=== PATIENT | female | born 1965 | race Caucasian/White ===

== ENCOUNTER → 2016-09-11 | Outpatient (CLI) | payer BC ==
[~2016-09-11] MED LIST: ASA325 MG PO; LEXAPRO DPS20 MG PO; MIRALAX PACKET17 GM PO; OXY IR DPS5 MG PO; PROTONIX40 MG PO; SENOKOT S1 TAB PO; TYLENOL DPS325 MG PO; ULTRAM DPS50 MG PO
== END | disposition home or self-care (01) ==
LOC: PTH.S 08:17
DX: Z01.812 Encounter for preprocedural laboratory examination (principal)

== ENCOUNTER 2016-09-26 08:28 | Inpatient (IN) | payer BC ==
[~2016-09-26] VITALS: Ht 170.2 cm; Wt 107.4 kg
--- NOTE | 2016-09-26 11:49 | HP ---
ADMIT: 09/26/2016 RM/LOC: [facility] MR#: [id number] [address] [address] ANG[facility] DOVE [facility] [place] [address] Pre-OP History and Physical SEX: F AGE: 51 : 1965 DATE OF SERVICE: CHIEF COMPLAINT: Left knee pain. HISTORY OF PRESENT ILLNESS: The patient is a 51-year-old white female, who has had left knee pain for several years. She by arthroscopy had has grade 4 changes of her medial femoral condyle and along her patellofemoral joint and also lateral joint line. She has had cortisone injections, viscosupplementation per chart for to get around. PAST MEDICAL HISTORY: Significant for fibromyalgia, rheumatoid arthritis, kidney disease, depression, knee arthroscopy, hysterectomy, and . MEDICATIONS: Lexapro. ALLERGIES: NONE. SOCIAL HISTORY: The patient does not smoke or regularly drink alcohol. PHYSICAL EXAMINATION: HEENT: Normocephalic and atraumatic. CV: Regular rate and rhythm. LUNGS: Benign. ABDOMEN: Benign. NEUROLOGIC: Awake, alert, and oriented x3. MUSCULOSKELETAL: Shows the patient is tender over the medial joint line of the patellofemoral joint. Negative Orville. Negative anterior drawer. Negative posterior drawer. Medial and lateral collateral ligaments intact to stressing. Slight swelling of the knee. She has full extension, 130 degrees of flexion. ADMIT: 09/26/2016 RM/LOC: [facility] MR#: [id number] [address] [address] ANGEL DOVE [address] [place] [id number] Pre-OP History and Physical SEX: F AGE: 51 : 1965 IMAGING DATA: X-rays show left knee DJD, significant narrowing along the patellofemoral joint. ASSESSMENT AND PLAN: Left knee degenerative joint disease, has failed nonoperative treatment. At this point in time, we will plan left total knee arthroplasty. The patient understands the risks and benefits of the surgical intervention, which include, but not limited to infection, DVT, arthrofibrosis, neurovascular injury, loosening, , etc and desires to proceed. She will see her medical doctor, Dr. Mart for preoperative medical clearance who will follow her postoperatively in the hospital for anticoagulation and any other medical issues that may arise. Please refer to that H and P for any in-depth medical issues or medication changes. Sidney Michael MD/ jose miguel JOB #: [id number] CC: Sidney Michael, Attending Physician Moraima Smith, Family Physician
[2016-09-29] MEDS ORDERED: OXY IR DPS5 MG PO (15:58)
[2016-09-29] MEDS ORDERED: LEXAPRO DPS20 MG PO (15:58)
[2016-09-29] MEDS ORDERED: ASA325 MG PO (15:59)
[2016-09-29] MEDS ORDERED: ULTRAM DPS50 MG PO (15:59)
[2016-09-29] MEDS ORDERED: MIRALAX PACKET17 GM PO (15:59)
[2016-09-29] MEDS ORDERED: SENOKOT S1 TAB PO (16:00)
[2016-09-29] MEDS ORDERED: TYLENOL DPS325 MG PO (16:00)
[2016-09-29] MEDS ORDERED: PROTONIX40 MG PO (16:00)
--- NOTE | 2016-10-10 13:40 | OR ---
ADMIT: 09/26/2016 RM/LOC: [facility] MR#: [id number] [address] DERRELL ANGEL A [address] [place] [address] Operative/Delivery Room Report SEX: F AGE: 51 : 1965 SURGERY DATE: 09/26/2016 SURGEON: Sidney Michael MD PREOPERATIVE DIAGNOSIS: Left knee degenerative joint disease. POSTOPERATIVE DIAGNOSIS: Left knee degenerative joint disease. PROCEDURE PERFORMED: Left total knee arthroplasty with Ian and Ian system, size 3 posterior stabilized femoral component, size 3 tibial tray, size 38 patellar button, and 10-mm posterior stabilized tibial insert. ASSISTANTS: Michael Aguilar MD and Jigar Rebolledo PA-C ANESTHESIA: Spinal. ESTIMATED BLOOD LOSS: Minimal. FLUIDS: Per anesthetic record. COMPLICATIONS: None. DRAIN: One drain. TOURNIQUET TIME: Approximately 48 minutes. CONDITION ON DISCHARGE: The patient returned to the recovery room in fair condition. INDICATION: The patient has been having left knee pain refractory to nonoperative treatment due to DJD. She desired total knee arthroplasty. She understands the risks and benefits of procedures and decided to proceed with operation. PROCEDURE IN DETAIL: The patient was taken to the OR, transferred to the OR table. Spinal placed. She was laid in supine position. All bony points well padded. Well-padded tourniquet applied to left lower extremity. The left lower extremity was prepped and draped in the usual sterile fashion. It was exsanguinated and tourniquet inflated to 350 mmHg. An anterior incision was made starting over the medial aspect of the tibial tubercle, carried proximal to the patella through the skin and subcutaneous tissue with a skin knife. Medial arthrotomy then performed with a #10 blade. Patella everted, knee flexed. The ACL, PCL, medial and lateral menisci excised. Step drill was then used to open the intramedullary canal of the femur. I placed the IM alignment guide with the distal femoral cutting block down the intramedullary canal of the femur set at 11 mm of resection, 5 degrees of valgus cut and pinned it to the anterior aspect of the distal femur. I removed the IM alignment guide and cut the distal femur using an oscillating saw. I removed this cutting jig and sized the femur to 3. I placed a size 3 four-in-one cutting block on the ADMIT: 09/26/2016 RM/LOC: [facility] MR#: [id number] [address] [address] ANGEL DOVE [address] [place] [address] Operative/Delivery Room Report SEX: F AGE: 51 : 1965 distal aspect of the femur in 3 degrees of external rotation, made the 4 appropriate cuts using an oscillating saw. I removed this cutting jig and placed a box cutting jig on the distal aspect of the femur. I cut the box out of the distal femur using a reciprocating saw. Proximal tibia was then cut perpendicular to the long axis of the tibial shaft using the proximal tibial cutting guide and oscillating saw. The posterior aspect of the patella was cut flush with the posterior aspects of the quadriceps and patellar tendons using the patella cutting saw. This was sized to a 30 and step drilled with the guide. Trial components were then placed. A size 3 tibial tray with 10 mm insert gave excellent range of motion, stability, and patellar tracking. Thus, the femoral component was step drilled, tibial component was step drilled and cruciate punched. Trial components were then removed. Knee thoroughly irrigated with bacitracin solution and dried. Knee thoroughly injected with the Exparel like component. I then cemented the tibia, patella, and femoral components into place removing all extraneous cement as it dried. I then impacted the 10 mm insert into the tibial tray and ran the knee through a range of motion. It had excellent range of motion, stability, and patellar tracking. Thus, one deep drain was then placed. Medial arthrotomy closed using #1 Vicryl, subcutaneous tissue closed using 2-0 Vicryl, skin closed using zayda. Wounds were washed, dried, dressed with sterile Adaptic, 4x4s, ABD, Webril, and Mandeep wrap. The tourniquet let down. An ice pad was placed on top of the Mandeep wrap. Drapes removed, transferred back to the recovery room in fair condition. Sidney Michael MD/ jose miguel JOB #: [id number] CC: Sidney Michael, Attending Physician Moraima Smith, Family Physician
--- NOTE | 2016-10-18 08:09 | CO ---
ADMIT: 09/26/2016 RM/LOC: [facility] MR#: [id number] [facility] [address] [place] [phone] [facility] [address] [place] [address] Consultation Report SEX: F AGE: 51 : 1965 DATE OF CONSULTATION: 09/11/2016 ATTENDING PHYSICIAN: Sidney Michael CONSULTING PHYSICIAN: Nima Mart, DO DATE OF PLANNED SURGERY: 09/26/2016. HISTORY OF PRESENT ILLNESS: This is a 51-year-old, female patient, who had a torn meniscus back in December 2006, which underwent endoscopy and repair. She is now preparing for right total knee replacement after years of ongoing degeneration. This will be performed by Dr. Michael. 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 She has given by C- section, but did suffer toxemia of and hypokalemia at that time. FAMILY HISTORY: Sister of ovarian and uterine cancer. SOCIAL HISTORY: She is , but remarried. She quit smoking several weeks ago. She continues to work. REVIEW OF SYSTEMS: She denies any chest pain, shortness of breath, cough, or sputum production. No fevers, chills, nausea, vomiting, diarrhea, constipation, hematemesis, hematochezia, or melena. PHYSICAL EXAMINATION: GENERAL: She has a body mass index of 36.3, she weighs 232 pounds and 5 feet 7 inches tall, blood pressure is 134/70. HEENT: Ear, nose, and throat is normal. No JVD or bruit. HEART: Regular. ADMIT: 09/26/2016 RM/LOC: [facility] MR#: [id number] [facility] [address] [place], [place] [address] [facility] [address] [place] [place] [place] [address] Consultation Report SEX: F AGE: 51 : 1965 ABDOMEN: Round, soft, nontender. There is no peripheral edema. LABORATORY DATA: Reviewed and essentially within healthy range. IMPRESSION: Generally healthy 51-year-old, female patient, with osteoarthritis and obesity. History of estrogen replacement induced transient ischemic attack. PLAN: We are going to use aspirin as DVT prophylaxis. She has been on aspirin in the past and had no issues with it. We will continue her antidepressant therapy, and I will help assist and follow in her care during her hospital stay. Nima Mart DO/ jose miguel JOB #: [id number] CC: Sidney Michael, Attending Physician UNKNOWN, Family Physician
--- NOTE | 2016-10-24 13:41 | DS ---
ADMIT: 09/26/2016 RM/LOC: [facility] MR#: [id number] [address] [place] [id number] [facility]MA DOVE [address] [place] [address] General Discharge Summary SEX: F AGE: 51 : 1965 ADMISSION DATE: 09/26/2016 DISCHARGE DATE: 09/28/2016 REASON FOR ADMISSION: Elective left total knee arthroplasty after failing conservative management for osteoarthritis. PREOPERATIVE DIAGNOSIS: Left knee degenerative joint disease. POSTOPERATIVE DIAGNOSIS: Left knee degenerative joint disease. PROCEDURE PERFORMED: Left total knee arthroplasty. ANESTHETIC: Spinal. COMPLICATIONS: None. BLOOD LOSS: Minimal. SURGEON: Sidney Michael MD ASSISTANTS: Michael Aguilar MD and Jigar Rebolledo PA-C ACTIVE MEDICAL PROBLEMS: Osteoarthritis, fibromyalgia, rheumatoid arthritis, chronic kidney disease, and depression. HOSPITAL COURSE: Norma was admitted on 09/26/2016 for elective left total knee arthroplasty, which was completed successfully by Dr. Michael. There were no complications. Postoperatively, she did well with pain control with use oral analgesics as well as intraoperative pain injection cocktail. She participated well with physical therapy, progressing with joint camp. Postop day #1, she did well. I pulled her drain. On postop day #2, she continued to do well and was stable, started on aspirin protocol for DVT prophylaxis. She did experience mild acute surgical blood-loss anemia, hemoglobin dropped to 9.4, but remained hemodynamically stable, did not require transfusion. On postop day #2, she was stable and ready for discharge with plans for outpatient therapy. DISCHARGE MEDICATIONS: ADMIT: 09/26/2016 RM/LOC: [address] [facility] MR#: [id number] [address] [address] NORMA DOVE [address] [place] [address] General Discharge Summary SEX: F AGE: 51 : 1965 1. Escitalopram 20 mg daily. 2. OxyIR 5 mg, 1 to 2 q.4 p.r.n. 3. Ultram 50 mg, 1 to 2 q.6 p.r.n. 4. Aspirin 325 mg daily x6 weeks. 5. MiraLAX p.r.n. 6. Protonix 40 mg daily while on aspirin. 7. Senokot b.i.d. p.r.n. 8. Tylenol 650 mg q.6 p.r.n. DISCHARGE INSTRUCTIONS: Norma will undergo outpatient therapy per total knee arthroplasty protocol. Follow up in the office in 2 weeks for wound check, 6 weeks with x-rays. Follow up primary care as directed. Jigar Rebolledo PA-C / Sidney Michael MD / jose miguel JOB #: [id number] CC: Sidney Michael MD, Attending Physician Moraima Smith, Family Physician
== END 2016-09-28 17:10 | disposition home or self-care (01) | DRG 470 ==
LOC: WOR 10:04 → 5MS 10:04
PROVIDERS: ADMIT Orthopaedic Surgery
PROC: 0SRD0J9 Replacement of Left Knee Joint with Synthetic Substitute, Cemented, Open Approach (ICD-10-PCS; principal; 2016-09-26)
DX: M17.12 Unilateral primary osteoarthritis, left knee (principal); D62 Acute posthemorrhagic anemia; M06.9 Rheumatoid arthritis, unspecified; F32.9 Major depressive disorder, single episode, unspecified; M79.7 Fibromyalgia; E66.9 Obesity, unspecified; Z68.36 Body mass index [BMI] 36.0-36.9, adult; Z86.718 Personal history of other venous thrombosis and embolism; Z86.73 Personal history of transient ischemic attack (TIA), and cerebral infarction without residual deficits; Z87.891 Personal history of nicotine dependence; Z90.5 Acquired absence of kidney